=== PATIENT | female | born 2000 | race Caucasian/White ===

== ENCOUNTER → 2024-05-05 | Outpatient (REF) | LOC: M LAB REF 20:13 | DX: Z00.00 Encounter for general adult medical examination without abnormal findings (principal) ==

== ENCOUNTER 2025-01-23 08:21 | Inpatient (IN) | payer SELFPAY ==
[~2025-01-23] VITALS: Ht 170.2 cm; Wt 105.2 kg
[2025-01-23 08:55] LABS: BASO % 0.5 % (0.0-1.0); EOS # 0.1 10^3/uL (0.0-0.5); EOS % 1.7 % (0.0-3.0); HEMATOCRIT 40.6 % (36.0-47.0); HEMOGLOBIN 14.1 g/dl (12.0-15.5); LYMPH # 2.9 10^3/uL (1.5-5.0); LYMPH % 36.6 % (24.0-44.0); MEAN CORPUSCULAR HEMOGLOBIN 31.8 pg (27.0-33.0); MEAN CORPUSCULAR HGB CONC 34.7 g/dl (32.0-36.5); MEAN CORPUSCULAR VOLUME 91.4 fl (80.0-96.0); MONO # 0.5 10^3/uL (0.0-0.8); MONO % 6.9 % (2.0-8.0); NEUTROPHILS # 4.3 10^3/uL (1.5-8.5); PLATELET COUNT, AUTOMATED 218 10^3/uL (150-450); RED BLOOD COUNT 4.44 10^6/uL (4.00-5.40); WHITE BLOOD COUNT 7.9 10^3/uL (4.0-10.0)
[2025-01-23 08:57] LABS: VENOUS BASE EXCESS -2.5 (-2.0-2.0); VENOUS HCO3 23.5 MMOL/L (23.0-27.0); VENOUS O2 SATURATION 83.3 % (60.0-80.0); VENOUS PARTIAL PRESSURE CO2 44.7 mmHg (38.0-50.0); VENOUS PARTIAL PRESSURE O2 50.9 mmHg (30.0-50.0); VENOUS PH 7.338 UNITS (7.330-7.430); VENOUS STANDARD HCO3 22.1 MMOL/L; VENOUS TOTAL CO2 24.8 MMOL/L (24.0-28.0)
[2025-01-23] MEDS ORDERED: CHARCOAL ACTIVATED LIQUID 25GM/120ML BTL PO ONE (09:15)
[2025-01-23 09:23] LABS: ALBUMIN 4.2 G/DL (3.2-5.2); ALKALINE PHOSPHATASE 62 U/L (35-104); ALT/SGPT 32 U/L (7.0-40); AST/SGOT 13 U/L (<34); BILIRUBIN,DIRECT < 0.1 MG/DL (<0.4); BILIRUBIN,TOTAL 0.3 MG/DL (0.3-1.2); BLOOD UREA NITROGEN 6 MG/DL (9-23); CALCIUM LEVEL 9.1 MG/DL (8.5-10.1); CARBON DIOXIDE LEVEL 25 MMOL/L (20-31); CHLORIDE LEVEL 106 MMOL/L (98-107); CREATININE FOR GFR 0.61 MG/DL (0.55-1.30); GLOMERULAR FILTRATION RATE > 60.0 (>60); GLUCOSE, FASTING 101 MG/DL (60-100); HCG, SERUM QUALITATIVE NEGATIVE (NEGATIVE); POTASSIUM SERUM 3.8 MMOL/L (3.5-5.1); SALICYLATE LEVEL < 3.0 MG/DL (<30); SODIUM LEVEL 143 MMOL/L (136-145); TOTAL PROTEIN 8.1 G/DL (5.7-8.2)
[2025-01-23 09:25] LABS: THYROID STIMULATING HORMONE 1.101 uIU/ML (0.55-4.78)
[2025-01-23 09:26] LABS: CPK CREATINE PHOSPHOKINASE 84 U/L (34-145)
[2025-01-23 09:37] LABS: ETHYL ALCOHOL (ETHANOL) 0.162 % (0.000-0.010)
[2025-01-23] MEDS: CHARCOAL ACTIVATED LIQUID 25GM/120ML BTL PO ONE (09:37)
[2025-01-23] MEDS: NS (Normal Saline) 0.9% 1,000 ML IV ONE ×2 (09:40→15:10)
[2025-01-23 15:51] LABS: AMPHETAMINES LEVEL URINE NEGATIVE (NEGATIVE); BARBITURATES URINE NEGATIVE (NEGATIVE)
[2025-01-23 15:52] LABS: BENZODIAZEPINES URINE NEGATIVE (NEGATIVE); CANNABINOIDS URINE NEGATIVE (NEGATIVE); METHADONE URINE NEGATIVE (NEGATIVE); OPIATES URINE NEGATIVE (NEGATIVE); PHENCYCLIDINE URINE NEGATIVE (NEGATIVE)
[2025-01-23 15:58] LABS: COCAINE METABOLITE URINE POSITIVE (NEGATIVE)
[2025-01-23] MEDS ORDERED: HOME MED LIST COMPLETE! XX SCH (17:00)
[2025-01-23] MEDS ORDERED: MAALOX 30 ML SUSP *UDC PO PRN (17:50)
[2025-01-23] MEDS ORDERED: traZODone 50 MG TAB PO PRN (17:50)
[2025-01-23] MEDS ORDERED: IBUPROFEN 400MG TAB PO PRN (17:50)
[2025-01-23] MEDS ORDERED: diphenhydrAMINE 25MG CAP PO PRN (17:50)
[2025-01-23] MEDS ORDERED: MOM 30ML SUSPENSION UDC PO PRN (17:50)
[2025-01-23] MEDS ORDERED: ACETAMINOPHEN 325 MG TAB PO PRN (17:50)
[2025-01-23 20:53] VITALS: BP 122/73; TEMP 97.8; O2SAT 98
[2025-01-24 06:40] VITALS: BP 100/52; TEMP 98; O2SAT 96
[2025-01-25 06:21] VITALS: BP 108/60; TEMP 98.4; O2SAT 98
[2025-01-25 15:46] VITALS: BP 128/75; TEMP 97.4; O2SAT 100
[2025-01-26 06:22] VITALS: BP 131/59; TEMP 97.5; O2SAT 98
[2025-01-26 14:50] VITALS: BP 120/58; TEMP 98.4; O2SAT 98
[2025-01-27 06:29] VITALS: BP 135/60; TEMP 98.1; O2SAT 100
== END 2025-01-27 09:55 | disposition home or self-care (01) | DRG 754 ==
LOC: EDBD 08:21 → M ED 08:21 → M ED INP 17:47 → M PSY 20:51
PROVIDERS: ADMIT Psychiatry & Neurology Neurology; ATTEND Psychiatry & Neurology Psychiatry
DX: F32.A Depression, unspecified (principal); F14.10 Cocaine abuse, uncomplicated; F10.129 Alcohol abuse with intoxication, unspecified; F17.200 Nicotine dependence, unspecified, uncomplicated; Z63.31 Absence of family member due to military deployment; F17.290 Nicotine dependence, other tobacco product, uncomplicated; Z91.040 Latex allergy status; T39.312A Poisoning by propionic acid derivatives, intentional self-harm, initial encounter; F43.10 Post-traumatic stress disorder, unspecified; Z81.8 Family history of other mental and behavioral disorders

== ENCOUNTER → 2025-02-12 | Outpatient (CLI) | payer OTHER | LOC: M OUTALCOH 09:46 | PROVIDERS: ATTEND Psychiatry & Neurology Psychiatry | DX: Z03.89 Encounter for observation for other suspected diseases and conditions ruled out (principal); F17.200 Nicotine dependence, unspecified, uncomplicated ==